=== PATIENT | female | born 1960 | race Caucasian/White ===

== ENCOUNTER 2022-08-08 15:08 | Emergency (ER) | payer BC ==
[~2022-08-08] VITALS: Ht 154.9 cm; Wt 68.9 kg
[2022-08-08 15:23] VITALS: BP 146/72
--- NOTE | 2022-08-08 16:30 | NUR ---
61/F PRESENTS TO ED WITH C/O RIGHT TOE PAIN S/P ACCIDENTALLY RUNNING INTO SOMETHING WHILE WALKING. PATIENT REPORTS PAIN AND BRUISING AND STATES PAIN HAS BEEN WORSENING WITH AMBULATION. PATIENT REPORTS TAKING MOTRIN WITH MILD RELIEF.
--- NOTE | 2022-08-08 17:06 | NUR ---
RONAL TAPE APPLIED TO R FOOT 4/5 DIGIT AND ORTHO SHOE APPLIED. + CMS
[2022-08-08] MEDS ORDERED: IBUP-2213 PO (17:20)
--- NOTE | 2022-08-08 17:35 | NUR ---
Patient discharged with v/s stable. Written and verbal after care instructions ABOUT TOE FRACTURE given and explained. Patient alert, oriented and verbalized understanding of instructions. Ambulatory with steady gait. All questions addressed prior to discharge. ID band removed. Patient advised to follow up with PMD. Rx of IBUPROFEN given. Patient educated on indication of medication including possible reaction and side effects. Opportunity to ask questions provided and answered.
== END 2022-08-08 17:35 | disposition home or self-care (01) ==
LOC: MED 15:08
DX: S92.401A Displaced unspecified fracture of right great toe, initial encounter for closed fracture (principal); X58.XXXA Exposure to other specified factors, initial encounter; Y93.89 Activity, other specified; Y92.89 Other specified places as the place of occurrence of the external cause; Y99.8 Other external cause status
CPT/HCPCS: 73660; 99283